=== PATIENT | female | born 1935 | race Caucasian/White ===

== ENCOUNTER 2020-11-12 23:14 | Emergency (ER) | payer MEDICARE, OTHER ==
[~2020-11-12] VITALS: Ht 152.4 cm; Wt 65.3 kg
[2020-11-12] MEDS ORDERED: IV NORMAL SALINE 1000 ML BAG IV ONE (23:45)
[2020-11-13 00:19] LABS: BASOPHILS % (AUTO) 0.4 % (0.0-2.0); HEMATOCRIT 37.6 % (31.2-41.9); HEMOGLOBIN 12.5 g/dL (10.9-14.3); LYMPHOCYTES # (AUTO) 2.1 K/uL (20.0-40.0); LYMPHOCYTES % (AUTO) 27.9 % (20.5-51.5); MEAN CORPUSCULAR HEMOGLOBIN 30.4 uug (24.7-32.8); MEAN CORPUSCULAR HGB CONC 33 g/dL (32.3-35.6); MEAN CORPUSCULAR VOLUME 91.4 fL (75.5-95.3); MONOCYTES # (AUTO) 0.4 K/uL (2.0-10.0); NEUTROPHILS # (AUTO) 5.1 K/uL (1.8-8.9); NEUTROPHILS % (AUTO) 66.7 % (38.5-71.5); PLATELET COUNT (AUTO) 226 K/uL (179-408); RED BLOOD CELL COUNT(AUTO) 4.11 MIL/uL (3.63-4.92); WHITE BLOOD COUNT (AUTO) 7.6 K/uL (3.8-11.8)
[2020-11-13] MEDS ORDERED: insulin SUBCUT (00:32)
[2020-11-13] MEDS ORDERED: ASPI-1169 PO (00:32)
[2020-11-13] MEDS ORDERED: metoprolol PO (00:32)
[2020-11-13] MEDS ORDERED: VALS40TA4 PO (00:32)
--- NOTE | 2020-11-13 00:51 | NUR ---
[facility]ae[facility] unable to take patient due to max capacity.
--- NOTE | 2020-11-13 00:57 | NUR ---
Called [facility], spoke to Dante. Will fax facesheet and ct result to .
[2020-11-13 01:01] LABS: CARBON DIOXIDE 21 mmol/L (21-32); CHLORIDE 96 mmol/L (98-107); POTASSIUM 4.4 mmol/L (3.5-5.1)
[2020-11-13 01:02] LABS: BILIRUBIN,DIRECT 0.1 mg/dL (0.0-0.2); BILIRUBIN,TOTAL 0.3 mg/dL (0.2-1.0); CREATININE 1.6 mg/dL (0.6-1.3); GLUCOSE 169 mg/dL (74-106); UREA NITROGEN, BLOOD 33 mg/dL (7-18)
[2020-11-13 01:03] LABS: ALANINE AMINOTRANSFERASE 24 U/L (14-59); ALKALINE PHOSPHATASE 49 U/L (50-136); ASPARTATE AMINOTRANSFERASE 19 U/L (15-37); TRIGLYCERIDES 105 MG/DL (30-150)
[2020-11-13 01:04] LABS: CHOLESTEROL 125 mg/dL (<200); HDL CHOLESTEROL 40 mg/dL (40-60)
--- NOTE | 2020-11-13 02:20 | NUR ---
Patient Tranfers to outside Facility Physician: YOHANA Location: [facility]
--- NOTE | 2020-11-13 02:32 | NUR ---
CALLED [facility] [phone] MADE AWARE OF COVID TEST RESULTS PATIENT IS (+). PATIENT SAID THEY WILL TAKE APPROPRIATE ACTION.
== END 2020-11-13 02:21 | disposition short-term general hospital (02) ==
LOC: ER 23:17
DX: I61.9 Nontraumatic intracerebral hemorrhage, unspecified (principal); I11.9 Hypertensive heart disease without heart failure; U07.1 COVID-19; E11.9 Type 2 diabetes mellitus without complications; Z79.4 Long term (current) use of insulin; Z79.82 Long term (current) use of aspirin; Z79.899 Other long term (current) drug therapy; E87.1 Hypo-osmolality and hyponatremia
CPT/HCPCS: 36415; 70030-TC; 70450; 71045; 83605; 85025; 85730; 93005; A4663; J7030